=== PATIENT | female | born 1990 | race African-American/Black ===

== ENCOUNTER 2017-09-10 11:03 | Emergency (ER) | payer OTHER ==
[~2017-09-10] VITALS: Ht 152.4 cm; Wt 95.7 kg
== END 2017-09-10 11:51 | disposition home or self-care (01) ==
LOC: FSED 11:03
DX: M25.532 Pain in left wrist (principal); G56.02 Carpal tunnel syndrome, left upper limb
CPT/HCPCS: 99283